=== PATIENT | female | born 1960 | race Caucasian/White ===

== ENCOUNTER → 2017-11-02 | Outpatient (CLI) | payer OTHER ==
[~2017-11-02] MED LIST: LISI2.5T3 PO; NARA2.5T PO
[2017-11-06 19:53] LABS: CRYOGLOBULIN QUALITATIVE POSITIVE (NEGATIVE)
== END ==
LOC: CLAB 12:38
PROVIDERS: ATTEND Specialist
DX: B18.2 Chronic viral hepatitis C (principal); R79.9 Abnormal finding of blood chemistry, unspecified; Z79.899 Other long term (current) drug therapy; Z28.3 Underimmunization status; Z13.21 Encounter for screening for nutritional disorder; Z13.220 Encounter for screening for lipoid disorders; Z20.828 Contact with and (suspected) exposure to other viral communicable diseases
CPT/HCPCS: 36415; 82140; 82595